=== PATIENT | female | born 1940 | race Caucasian/White ===

== ENCOUNTER 2018-02-01 09:02 | Outpatient (CLI) ==
[2015-11-19 23:58] VITALS: BMI 16.2
--- NOTE | 2018-02-01 10:59 | DI ---
EXAM: Two views of the chest. History: Cough, pulmonary nodules. Comparison: Chest CT 09/25/2015 Findings: Heart size is normal. Atherosclerotic vascular calcifications. Emphysema. No change in the scarring at the right costophrenic angle. No definite acute infiltrates. Calcified granulomas a re again seen within the thorax. No acute osseous abnormalities. Impression: Emphysema and scarring at the right costophrenic angle. No definite acute infiltrates. Old granulomatous disease.
== END 2018-02-01 09:03 | disposition home or self-care (01) ==
LOC: RAD 09:02
PROVIDERS: ATTEND Internal Medicine
DX: R05 Cough (principal); F17.210 Nicotine dependence, cigarettes, uncomplicated; R91.1 Solitary pulmonary nodule

== ENCOUNTER 2018-05-03 08:35 | Outpatient (CLI) | payer OTHER ==
[2015-11-19 23:58] VITALS: BMI 16.2
--- NOTE | 2018-05-03 11:02 | CT ---
EXAM: CT of the chest with contrast History: Follow-up right lung cancer. Comparison: Chest radiograph 02/01/2018, chest CT 07/26/2016 Technique: Multiplanar CT images through the thorax were obtained following administration of IV con trast Findings: Heart size is within normal limits. No pericardial effusion. No thoracic aortic aneurysm. No pathologically enlarged thoracic lymph nodes. Emphysema again noted. Scattered areas of subsegm ental atelectasis and scarring again appreciated. No change in the chronic scarring at the right cos tophrenic angle. No acute infiltrates. No appreciable pleural fluid and no pneumothorax. No suspic ious lung masses or lung nodules. Within the visualized upper abdomen, no acute findings. Stable small hepatic cyst. No acute osseous abnormalities. Impression: 1. No CT evidence for recurrent, residual or metastatic disease in the thorax. 2. No acute intrathoracic process. 3. Emphysema
== END 2018-05-03 08:36 | disposition home or self-care (01) ==
LOC: RAD 08:35
PROVIDERS: ATTEND Internal Medicine
DX: C34.91 Malignant neoplasm of unspecified part of right bronchus or lung (principal)

== ENCOUNTER 2018-05-30 20:50 | Emergency (ER) | payer OTHER ==
[2018-05-30 20:58] VITALS: BP 201/96; TEMP 98; BMI 15.7
[2018-05-30] MEDS: CATAPRES PO STA (21:27)
--- NOTE | 2018-05-30 22:04 | ED.PDOC ---
General ED Provider: Dr. WENDY MARCANO-ER Chief Complaint: Hypertension Stated Complaint: my bp is up---my friend drove me crazy today Time Seen by Physician: 22:01 Mode of Arrival: Walk-In Information Source: Patient Exam Limitations: No limitations Primary Care Provider: HENRIQUE MORALES Nursing and Triage Documentation Reviewed and Agree: Yes Does patient meet sepsis criteria?: No System Inflammatory Response Syndrome: Not Applicable Sepsis Protocol: For patient's 13 years and over: Temp is 96.8 and below OR 101 and greater Pulse >90 BPM Resp >20/minute Acutely Altered Mental Status Are patient's symptoms suggestive of a new infection, such as: -Pneumonia -Skin, Soft Tissue -Endocarditis -UTI -Bone, Joint Infection -Implantable Device -Acute Abdominal Infection -Wound Infection -Meningitis -Blood Stream Catheter Infection -Unknown Cardiovascular Complaint Exam - Hypertension Complaint/Exam Onset/Duration: tonight Symptoms Are: Still present Timing: Constant Reported B/P Prior to Arrival: 220/120 Aggravating: Reports: None Alleviating: Reports: None Associated Signs and Symptoms: Reports: Anxiety Related Surgical History: Reports: None Cardiac Risk Factors: Reports: None Recent Change in Medications: No A/V [place]: No Papilledema Present: No JVD Present: No Carotid Bruit Present: No Femoral Pulses Bounding: Yes Differential Diagnoses: Hypertension, Hypertensive Crisis Quality Indicator For Non-Traumatic Chest Pain/Syncope: EKG Performed Review of Systems - Review Of Systems Constitutional: Reports: No symptoms Eyes: Reports: No symptoms Ears, Nose, Mouth, Throat: Reports: No symptoms Respiratory: Reports: No symptoms Cardiac: Reports: No symptoms GI: Reports: No symptoms : Reports: No symptoms Musculoskeletal: Reports: No symptoms Skin: Reports: No symptoms Neurological: Reports: Anxiety Endocrine: Reports: No symptoms Hematologic/Lymphatic: Reports: No symptoms All Other Systems: Reviewed and Negative Past Medical History - Past Medical History Previously Healthy: Yes Endocrine: Reports: None Cardiovascular: Reports: None Respiratory: Reports: COPD Hematological: Reports: None Gastrointestinal: Reports: None Genitourinary: Reports: None Neuro/Psych: Reports: None Musculoskeletal: Reports: None Cancer: Reports: Lung Last Menstrual Period: hyst - Surgical History General Surgical History: Reports: Unknown - Family History Family History: Reports: Unknown - Social History Smoking Status: Current some day smoker, Light tobacco smoker Hx Substance Use: No Alcohol Screening: None - Immunizations Tetanus Shot up to Date: Yes Physical Exam - Physical Exam Appearance: Well-appearing, No pain distress, Well-nourished Eyes: HARLAN, EOMI, Conjunctiva clear ENT: Ears normal, Nose normal, Oropharynx normal Neck: Supple Respiratory: Airway patent Cardiovascular: RRR, Pulses normal, No rub, No murmur GI/: Soft, Nontender, No masses, Bowel sounds normal, No Organomegaly Musculoskeletal: Normal strength, ROM intact, No edema, No calf tenderness Skin: Warm, Dry, Normal color Neurological: Sensation intact, Motor intact, Reflexes intact, Cranial nerves intact, Alert, Oriented Psychiatric: Affect appropriate, Mood appropriate Interpretation - EKG Interpretation Time of EKG #1: 22:05 Rate: Normal Rhythm: Sinus Ectopy: None [place]: NL ST Segment: Normal Interpretation: nsr Re-Evaluation - Re-Evaluation Time of Re-Evaluation: 22:03 Status: Improved Vital Signs Stable: Yes Pain Level: 0 Appearance: NAD Lungs: Clear Skin: Warm and Dry Neuro: Alert and Oriented X3 CV: RRR Additional Comments: bp 160/86 Critical Care Note - Critical Care Note Total Time (mins): 0 Course - Course Hematology/Chemistry: 05/30/18 21:21 05/30/18 21:21 Orders, Labs, Meds: Lab Review 05/30/18 05/30/18 21:21 21:21 WBC 7.80 RBC 4.74 Hgb 14.0 Hct 42.3 MCV 89.2 MCH 29.5 MCHC 33.1 RDW Coeff of Ezekiel 13.6 Plt Count 197 Immature Gran % (Auto) 0.3 Neut % (Auto) 60.3 Lymph % (Auto) 29.7 [place] % (Auto) 8.2 Eos % (Auto) 1.0 Baso % (Auto) 0.5 Immature Gran # (Auto) 0.0 Neut # (Auto) 4.7 Lymph # (Auto) 2.3 [place] # (Auto) 0.6 Eos # (Auto) 0.1 Baso # (Auto) 0.0 Sodium 136.4 L Potassium 4.00 Chloride 101.3 Carbon Dioxide 31.3 H Anion Gap 7.80 BUN 16.6 Creatinine 0.75 Estimated GFR (MDRD) 75.00 BUN/Creatinine Ratio 22.13 Glucose 100.3 Calcium 9.42 Total Bilirubin 0.37 AST 27.5 ALT 12.7 Alkaline Phosphatase 85.6 Total Creatine Kinase 38.7 Troponin I < 0.012 Total Protein 7.22 Albumin 4.25 Globulin 2.97 Albumin/Globulin Ratio 1.43 Orders Category Date Time Status EKG-(ED ONLY) Stat CARDIO 05/30/18 21:13 Completed ED PEDAL ASSEMBLER APPLIED .ONCE EMERGENCY 05/30/18 21:12 Active CBC W/ AUTO DIFF Stat LAB 05/30/18 21:21 Completed COMPREHENSIVE METABOLIC PANEL Stat LAB 05/30/18 21:21 Completed CREATINE KINASE Stat LAB 05/30/18 21:21 Completed TROPONIN I Stat LAB 05/30/18 21:21 Completed Clonidine HCl [Catapres] MEDS 05/30/18 21:13 Discontinued 0.1 mg PO ONCE STA Medications Discontinued Medications Generic Name Dose Route Start Last Admin Trade Name Freq PRN Reason Stop Dose Admin Clonidine 0.1 mg 05/30/18 21:13 05/30/18 21:27 Catapres PO 05/30/18 21:14 0.1 mg ONCE STA Administration Vital Signs: Temp Pulse Resp BP Pulse Ox 05/30/18 20:52 98 F 94 H 20 201/96 H 98 BENITO Risk Score BENITO Risk Score: Risk Score Odds of by 30D 0 0.1 (0.1-0.2) 1 0.3 (0.2-0.3) 2 0.4 (0.3-0.5) 3 0.7 (0.6-0.9) 4 1.2 (1.0-1.5) 5 2.2 (1.9-2.6) 6 3.0 (2.5-3.6) 7 4.8 (3.8-6.1) Departure - Departure Time of Disposition: 22:04 Disposition: HOME SELF-CARE Discharge Problem: HTN (hypertension) Qualifiers: Hypertension type: essential hypertension Qualified Code(s): I10 - Essential ( primary) hypertension Instructions: Chronic Hypertension (ED) Condition: Good Pt referred to PMD for follow-up: Yes IPMP verified?: No Additional Instructions: monitor bp at home and f/u with dr morales Allergies/Adverse Reactions: Allergies No Known Allergies Allergy (Verified 05/30/18 20:58) Home Medications: Ambulatory Orders Aspirin [Aspirin Chewable] 81 mg PO DAILYWM 12/29/14 Lisinopril [Zestril] 5 mg PO DAILY PRN 05/30/18 Disposition Discussed With: Patient
== END 2018-05-30 22:10 | disposition home or self-care (01) ==
LOC: ED 20:50
DX: I10 Essential (primary) hypertension (principal); F17.210 Nicotine dependence, cigarettes, uncomplicated
CPT/HCPCS: 36415; 80053; 82550; 84484; 85025; 93005; 93010; 99283

== ENCOUNTER 2018-12-14 10:42 | Outpatient (CLI) ==
--- NOTE | 2018-12-14 11:23 | DI ---
EXAM: CHEST FRONTAL AND LATERAL VIEWS HISTORY: Cough, chronic allergies. COMPARISON: 02/01/2018 FINDINGS: Heart size remains within normal limits. There is diffuse, chronic appearing interstitial accentuation. Lungs are hyperinflated and there is relative lucency of the lung zones consistent wi th emphysema. Blunting of the costophrenic angles is minimal and possibly related to chronic pleural retraction from hyperinflation versus tiny pleural effusions. There is density in the right base wh ich is new and could represent mild pneumonia. No pneumothorax or vascular congestion. IMPRESSION: 1. Findings suggestive of severe pain chronic obstructive pulmonary disease with possible right base pneumonia.
== END 2018-12-14 10:43 | disposition home or self-care (01) ==
LOC: RAD 10:42
PROVIDERS: ATTEND Internal Medicine
DX: R05 Cough (principal); J32.9 Chronic sinusitis, unspecified

== ENCOUNTER 2019-02-01 05:44 | Emergency (ER) ==
[2019-02-01 05:59] VITALS: TEMP 97.5; BMI 14.3
--- NOTE | 2019-02-01 06:46 | ED.PDOC ---
General ED Provider: Dr. WANG FREY Chief Complaint: Hypertension Stated Complaint: checked her blood pressure this morning when she woke up and noticed it was elevated 190/108 got worried took her blood pressure medication and came strianght to the ER. Time Seen by Physician: 06:35 Mode of Arrival: Walk-In Information Source: Patient Primary Care Provider: HENRIQUE ULLOA Nursing and Triage Documentation Reviewed and Agree: Yes Does patient meet sepsis criteria?: No System Inflammatory Response Syndrome: Not Applicable Sepsis Protocol: For patient's 13 years and over: Temp is 96.8 and below OR 101 and greater Pulse >90 BPM Resp >20/minute Acutely Altered Mental Status Are patient's symptoms suggestive of a new infection, such as: -Pneumonia -Skin, Soft Tissue -Endocarditis -UTI -Bone, Joint Infection -Implantable Device -Acute Abdominal Infection -Wound Infection -Meningitis -Blood Stream Catheter Infection -Unknown Review of Systems - Review Of Systems Constitutional: Reports: No symptoms Eyes: Reports: No symptoms Ears, Nose, Mouth, Throat: Reports: No symptoms Respiratory: Reports: No symptoms Cardiac: Reports: No symptoms GI: Reports: No symptoms : Reports: No symptoms Musculoskeletal: Reports: No symptoms Skin: Reports: No symptoms Neurological: Reports: Anxiety, Headache Endocrine: Reports: No symptoms Hematologic/Lymphatic: Reports: No symptoms All Other Systems: Reviewed and Negative Past Medical History - Past Medical History Previously Healthy: Yes Endocrine: Reports: None Cardiovascular: Reports: Hypertension Respiratory: Reports: COPD Hematological: Reports: None Gastrointestinal: Reports: None Genitourinary: Reports: None Neuro/Psych: Reports: None Musculoskeletal: Reports: None Cancer: Reports: Lung Last Menstrual Period: HAS HAD A HYSTERECTOMY - Surgical History General Surgical History: Reports: Other (partial lobectomy for cancer in 2004 ) - Family History Family History: Reports: Unknown - Social History Smoking Status: Current every day smoker, Light tobacco smoker Hx Substance Use: No Alcohol Screening: None - Immunizations Tetanus Shot up to Date: (UNKNOWN) Physical Exam - Physical Exam Appearance: Thin Eyes: HARLAN, EOMI, Conjunctiva clear ENT: Ears normal, Nose normal, Oropharynx normal Respiratory: Airway patent, Breath sounds clear, Breath sounds equal, Respirations nonlabored Cardiovascular: RRR, Pulses normal, No rub, No murmur GI/: Soft, Nontender, No masses, Bowel sounds normal, No Organomegaly Musculoskeletal: Normal strength, ROM intact, No edema, No calf tenderness Skin: Warm, Dry, Normal color Neurological: Sensation intact, Motor intact, Reflexes intact, Cranial nerves intact, Alert, Oriented Psychiatric: Anxious Critical Care Note - Critical Care Note Total Time (mins): 0 Course - Course Vital Signs: Temp Pulse Resp BP Pulse Ox 02/01/19 05:45 97.5 F L 93 H 18 182/90 H 96 Departure - Departure Time of Disposition: 06:47 Disposition: HOME SELF-CARE Discharge Problem: Anxiety about health Hypertension Qualifiers: Hypertension type: essential hypertension Qualified Code(s): I10 - Essential ( primary) hypertension Instructions: Hypertension (ED) Condition: Stable Pt referred to PMD for follow-up: Yes IPMP verified?: No Additional Instructions: Continue Home medications for Blood pressure Follow up with PCP in 3 days . Allergies/Adverse Reactions: Allergies No Known Allergies Allergy (Verified 02/01/19 05:52) Home Medications: Ambulatory Orders Aspirin [Aspirin Chewable] 81 mg PO DAILYWM 12/29/14 Lisinopril [Zestril] 5 mg PO DAILY PRN 05/30/18 Disposition Discussed With: Patient
[2019-02-01 06:59] VITALS: BP 153/72
== END 2019-02-01 06:58 | disposition home or self-care (01) ==
LOC: ED 05:44
DX: I10 Essential (primary) hypertension (principal); F41.9 Anxiety disorder, unspecified; F17.210 Nicotine dependence, cigarettes, uncomplicated
CPT/HCPCS: 99283